=== PATIENT | female | born 1995 | race Two or more races ===

== ENCOUNTER 2020-12-20 22:33 | Inpatient (IN) | payer OTHER ==
[~2020-12-20] VITALS: Ht 162.6 cm; Wt 45.6 kg
[2020-12-20 23:33] LABS: Basophils # (auto) 0 10 ^3/uL (0-0.2); Basophils % (auto) 0.5 % (0.0-2.0); Eosinophils # (auto) 0.1 10 ^3/uL (0-0.8); Eosinophils % (auto) 0.8 % (0.0-7.0); Hematocrit 36.1 % (36.0-46.0); Hemoglobin 12.1 g/dL (12.2-16.2); Lymphocytes # (auto) 2.3 10 ^3/uL (0.4-5.4); Lymphocytes % (auto) 25.2 % (10.0-50.0); Mean Corpuscular Hemoglobin 28.7 pg (28.0-32.0); Mean Corpuscular Hgb Conc. 33.5 g/dL (32.0-36.0); Mean Corpuscular Volume 85.8 fL (80.0-100.0); Monocytes # (auto) 0.5 10 ^3/uL (0-1.3); Monocytes % (auto) 5.8 % (0.0-12.0); Neutrophils # (auto) 6.1 10 ^3/uL (1.6-8.6); Neutrophils % (auto) 67.7 % (37.0-80.0); Nucleated Red Blood Cells % 0.1 %; Platelet Count (auto) 293 10^3/uL (140-450); Red Cell Distribution Width 14.5 % (11.8-14.3); White Blood Cell 9.1 10^3/uL (4.4-10.8)
[2020-12-20 23:51] LABS: Alanine Aminotransferase 40 U/L (13-56); Albumin 4.1 g/dL (3.4-5.0); Anion Gap 9 (5-15); Aspartate Aminotransferase 15 U/L (15-37); BUN/Creatinine Ratio 22.6; Blood Urea Nitrogen 14 mg/dL (7-18); Calcium 9.3 mg/dL (8.5-10.1); Carbon Dioxide 25 mmol/L (21-32); Chloride 105 mmol/L (98-107); GFR African American 152 mL/min; GFR Non-African American 126 mL/min; Glucose 86 mg/dL (74-106); Potassium 3.3 mmol/L (3.5-5.1); Sodium 139 mmol/L (136-145)
[2020-12-20 23:54] LABS: Partial Thromboplastin Time 24.2 sec (23.0-31.2)
[2020-12-20 23:56] LABS: Alkaline Phosphatase 66 U/L (45-117); Bilirubin, Total 0.3 mg/dL (0.2-1.0)
[2020-12-21] MEDS ORDERED: LIDOCAINE 2% (LOCAL ANESTH.) PF 5ml SDV ONE (00:34)
[2020-12-21] MEDS ORDERED: KETAMINE HCL 10 ML ONE (01:27)
[2020-12-21] MEDS ORDERED: KETAMINE 50mg/ML 10ml Vial (500mg/10ml) IV ONE ×3 (01:30→03:15)
[2020-12-21] MEDS ORDERED: LORazepam 2MG/ML-1ML VIAL ONE (01:59)
[2020-12-21] MEDS ORDERED: LORazepam 2MG/ML-1ML VIAL IV ONE (03:15)
[2020-12-21] MEDS ORDERED: MORPHINE SULFATE 4 MG/ML SYR/VIAL IV ONE (04:15)
[2020-12-21] MEDS ORDERED: ONDANSETRON HCL 4 MG/2 ML VIAL IV ONE (04:15)
[2020-12-21] MEDS ORDERED: ACETAMINOPHEN 325 MG TAB PO PRN (06:45)
[2020-12-21] MEDS: FAMOTIDINE 20 MG TAB PO SCH ×2 (07:58→22:50)
[2020-12-21] MEDS: buPROPion HCL 75 MG TAB PO SCH (07:58)
[2020-12-21] MEDS: HYDROcodone-ACET 5/325MG TAB PO PRN ×4 (07:59→22:50)
[2020-12-21] MEDS: MORPHINE SULFATE 4 MG/ML SYR/VIAL IV PRN ×3 (09:11→19:45)
[2020-12-21] MEDS: ONDANSETRON HCL 4 MG/2 ML VIAL IV PRN ×3 (09:12→18:47)
[2020-12-22 01:01] VITALS: BP 118/78
[2020-12-22] MEDS: ONDANSETRON HCL 4 MG/2 ML VIAL IV PRN ×2 (01:05→05:19)
[2020-12-22] MEDS: MORPHINE SULFATE 4 MG/ML SYR/VIAL IV PRN ×4 (01:06→18:57)
[2020-12-22] MEDS: TEMAZEPAM 15 MG CAP PO PRN (01:06)
[2020-12-22] MEDS ORDERED: QUET25TA37 PO (01:42)
[2020-12-22] MEDS ORDERED: BUPR150T8 PO (01:42)
[2020-12-22] MEDS: HYDROcodone-ACET 5/325MG TAB PO PRN ×3 (04:23→15:50)
[2020-12-22 05:00] VITALS: BP 102/62
[2020-12-22 05:47] LABS: Basophils # (auto) 0 10 ^3/uL (0-0.2); Basophils % (auto) 0.6 % (0.0-2.0); Eosinophils # (auto) 0.1 10 ^3/uL (0-0.8); Eosinophils % (auto) 1.8 % (0.0-7.0); Hematocrit 31.7 % (36.0-46.0); Hemoglobin 10.8 g/dL (12.2-16.2); Lymphocytes # (auto) 2.4 10 ^3/uL (0.4-5.4); Lymphocytes % (auto) 34.1 % (10.0-50.0); Mean Corpuscular Hemoglobin 29.6 pg (28.0-32.0); Mean Corpuscular Hgb Conc. 34.2 g/dL (32.0-36.0); Mean Corpuscular Volume 86.5 fL (80.0-100.0); Monocytes # (auto) 0.8 10 ^3/uL (0-1.3); Monocytes % (auto) 11.3 % (0.0-12.0); Neutrophils # (auto) 3.7 10 ^3/uL (1.6-8.6); Neutrophils % (auto) 52.2 % (37.0-80.0); Platelet Count (auto) 217 10^3/uL (140-450); Red Blood Cells 3.67 10^6/uL (4.0-5.20); Red Cell Distribution Width 14.7 % (11.8-14.3); White Blood Cell 7.2 10^3/uL (4.4-10.8)
[2020-12-22 06:06] LABS: Calcium 8.8 mg/dL (8.5-10.1); Potassium 3.6 mmol/L (3.5-5.1)
[2020-12-22 06:09] LABS: BUN/Creatinine Ratio 12.1
[2020-12-22 08:31] VITALS: BP 106/69
[2020-12-22] MEDS: FAMOTIDINE 20 MG TAB PO SCH ×2 (09:09→21:30)
[2020-12-22] MEDS: buPROPion HCL 75 MG TAB PO SCH (09:09)
[2020-12-22 15:53] VITALS: BP 116/71
[2020-12-22] MEDS ORDERED: HYDROmorphone HCL 2 MG/ML VL IV ONE (19:45)
[2020-12-22] MEDS ORDERED: LORazepam 2MG/ML-1ML VIAL IM ONE (20:15)
[2020-12-22 21:44] VITALS: BP 120/70
[2020-12-22] MEDS ORDERED: LORazepam 2MG/ML-1ML VIAL IV ONE (21:45)
[2020-12-23] MEDS: HYDROmorphone HCL 2 MG/ML VL IV PRN ×5 (02:21→20:22)
[2020-12-23 05:22] VITALS: BP 100/64
[2020-12-23 08:00] VITALS: BP 110/65
[2020-12-23] MEDS: FAMOTIDINE 20 MG TAB PO SCH ×2 (09:47→22:00)
[2020-12-23] MEDS: buPROPion HCL 75 MG TAB PO SCH (09:47)
[2020-12-23] MEDS: HYDROcodone-ACET 5/325MG TAB PO PRN (09:48)
[2020-12-23] MEDS: ONDANSETRON HCL 4 MG/2 ML VIAL IV PRN ×2 (13:11→21:40)
[2020-12-23 16:00] VITALS: BP 118/73
[2020-12-23 22:00] VITALS: BP 117/71
[2020-12-24] MEDS: HYDROcodone-ACET 5/325MG TAB PO PRN ×4 (03:40→20:12)
[2020-12-24 05:00] VITALS: BP 111/70
[2020-12-24 08:00] VITALS: BP 102/60
[2020-12-24] MEDS: FAMOTIDINE 20 MG TAB PO SCH ×2 (10:00→21:10)
[2020-12-24] MEDS: buPROPion HCL 75 MG TAB PO SCH (10:00)
[2020-12-24 16:00] VITALS: BP 116/73
[2020-12-24] MEDS: HYDROmorphone HCL 2 MG/ML VL IV PRN (21:49)
[2020-12-24 22:00] VITALS: BP 103/67
[2020-12-25] MEDS: HYDROcodone-ACET 5/325MG TAB PO PRN ×3 (02:30→20:08)
[2020-12-25 05:00] VITALS: BP 104/63
[2020-12-25 08:00] VITALS: BP 99/72
[2020-12-25] MEDS: buPROPion HCL 75 MG TAB PO SCH (09:07)
[2020-12-25] MEDS: FAMOTIDINE 20 MG TAB PO SCH ×2 (09:07→22:50)
[2020-12-25] MEDS: HYDROmorphone HCL 2 MG/ML VL IV PRN (11:05)
[2020-12-25 15:45] VITALS: BP 104/59
[2020-12-25 22:00] VITALS: BP 122/67
[2020-12-26] MEDS: HYDROcodone-ACET 5/325MG TAB PO PRN ×3 (00:32→21:17)
[2020-12-26 05:00] VITALS: BP 110/66
[2020-12-26 07:31] VITALS: BP 105/68
[2020-12-26] MEDS: FAMOTIDINE 20 MG TAB PO SCH ×2 (09:54→21:16)
[2020-12-26] MEDS: buPROPion HCL 75 MG TAB PO SCH (09:54)
[2020-12-26] MEDS ORDERED: LORazepam 0.5 MG TAB PO PRN (10:30)
[2020-12-26 16:00] VITALS: BP 115/69
[2020-12-26 22:02] VITALS: BP 108/62
[2020-12-27 05:30] VITALS: BP 106/69
[2020-12-27] MEDS: HYDROcodone-ACET 5/325MG TAB PO PRN ×2 (07:32→22:11)
[2020-12-27 08:00] VITALS: BP 98/57
[2020-12-27] MEDS: buPROPion HCL 75 MG TAB PO SCH (09:16)
[2020-12-27] MEDS: FAMOTIDINE 20 MG TAB PO SCH ×2 (09:16→22:10)
[2020-12-27 15:39] LABS: Partial Thromboplastin Time 26.5 sec (23.0-31.2)
[2020-12-27 16:00] VITALS: BP 106/54
[2020-12-27 19:46] LABS: Alcohol, Urine < 3.0 mg/dL (0-10); Amphetamine Screen, Urine NEGATIVE (NEGATIVE); Barbiturate Scree,Urine NEGATIVE (NEGATIVE); Benzodiazephine Screen, Urine NEGATIVE (NEGATIVE); Cannabinoid Screen, Urine NEGATIVE (NEGATIVE); Cocaine Screen, Urine NEGATIVE (NEGATIVE); Opiate Scree,Urine NEGATIVE (NEGATIVE); Phencyclidine Screen, Urine NEGATIVE (NEGATIVE)
[2020-12-27 19:50] LABS: Urine Amorphous Crystal FEW /hpf (None Seen); Urine Bacteria NONE SEEN /hpf (None Seen); Urine Blood 2+ /uL (Negative); Urine Specific Gravity 1.013 (1.001-1.035); Urine WBC 3 /hpf (0 - 5)
[2020-12-27 22:00] VITALS: BP 118/69
[2020-12-28] MEDS: TEMAZEPAM 15 MG CAP PO PRN (01:59)
[2020-12-28 05:00] VITALS: BP 105/60
[2020-12-28] MEDS ORDERED: POVIDONE IODINE 10 % TOPICAL OINT 30GM TOP ONE (07:08)
[2020-12-28] MEDS ORDERED: LIDOCAINE 1% HCL (LOCAL ANESTH.) INJ 20ML MDV ONE (07:09)
[2020-12-28] MEDS ORDERED: BUPIVACAINE W/ EPINEPH 0.25% INJ 50ML MDV ONE (07:09)
[2020-12-28] MEDS ORDERED: ONDANSETRON HCL 4 MG/2 ML VIAL ONE (07:49)
[2020-12-28] MEDS ORDERED: fentaNYL CITRATE 100 MCG/2 ML VL ONE (07:49)
[2020-12-28] MEDS ORDERED: PROPOFOL 10 MG/ML 20 ML IV ONE ×2 (07:49→08:38)
[2020-12-28] MEDS ORDERED: SODIUM CHLORIDE LOCK 10 ML ONE (07:49)
[2020-12-28] MEDS ORDERED: MIDAZOLAM HCL 1MG/1ML-2 ML VIAL ONE (07:49)
[2020-12-28] MEDS ORDERED: MEPERIDINE HCL (50 MG/ML) 1 ML VIAL ONE (07:49)
[2020-12-28] MEDS ORDERED: ROCURONIUM 10MG/ML 10ML VIAL IV ONE (07:52)
[2020-12-28 08:00] VITALS: BP 105/68
[2020-12-28] MEDS ORDERED: levoFLOXacin 500MG 100 ML IV ONE (08:03)
[2020-12-28 09:43] LABS: Basophils # (auto) 0 10 ^3/uL (0-0.2); Basophils % (auto) 0.4 % (0.0-2.0); Eosinophils # (auto) 0.3 10 ^3/uL (0-0.8); Eosinophils % (auto) 3.6 % (0.0-7.0); Hematocrit 34.6 % (36.0-46.0); Hemoglobin 11.9 g/dL (12.2-16.2); Lymphocytes # (auto) 1.6 10 ^3/uL (0.4-5.4); Lymphocytes % (auto) 18.7 % (10.0-50.0); Mean Corpuscular Hemoglobin 29.5 pg (28.0-32.0); Mean Corpuscular Hgb Conc. 34.2 g/dL (32.0-36.0); Mean Corpuscular Volume 86.2 fL (80.0-100.0); Monocytes # (auto) 0.8 10 ^3/uL (0-1.3); Monocytes % (auto) 9.4 % (0.0-12.0); Neutrophils # (auto) 5.7 10 ^3/uL (1.6-8.6); Neutrophils % (auto) 67.9 % (37.0-80.0); Platelet Count (auto) 302 10^3/uL (140-450); Red Blood Cells 4.02 10^6/uL (4.0-5.20); Red Cell Distribution Width 14.6 % (11.8-14.3); White Blood Cell 8.4 10^3/uL (4.4-10.8)
[2020-12-28] MEDS ORDERED: MORPHINE SULFATE 4 MG/ML SYR/VIAL IV PRN (09:45)
[2020-12-28] MEDS ORDERED: ONDANSETRON HCL 4 MG/2 ML VIAL IV PRN (09:45)
[2020-12-28] MEDS ORDERED: HYDROmorphone HCL 2 MG/ML VL IV PRN (09:45)
[2020-12-28 10:10] LABS: Calcium 8.6 mg/dL (8.5-10.1); Potassium 3.9 mmol/L (3.5-5.1)
[2020-12-28 10:13] LABS: BUN/Creatinine Ratio 19.7
[2020-12-28] MEDS: buPROPion HCL 75 MG TAB PO SCH (11:20)
[2020-12-28] MEDS: FAMOTIDINE 20 MG TAB PO SCH ×2 (11:30→22:00)
[2020-12-28] MEDS: HYDROcodone-ACET 5/325MG TAB PO PRN ×3 (14:00→22:55)
[2020-12-28 16:24] VITALS: BP 106/68
[2020-12-28 22:00] VITALS: BP 115/73
[2020-12-29 05:00] VITALS: BP 101/60
[2020-12-29 08:00] VITALS: BP 106/63
[2020-12-29] MEDS: HYDROcodone-ACET 5/325MG TAB PO PRN ×3 (08:37→22:00)
[2020-12-29] MEDS: buPROPion HCL 75 MG TAB PO SCH (10:14)
[2020-12-29] MEDS: FAMOTIDINE 20 MG TAB PO SCH ×2 (10:14→22:00)
[2020-12-29 16:00] VITALS: BP 115/73
[2020-12-29 22:00] VITALS: BP 112/66
[2020-12-30 05:00] VITALS: BP 94/53
[2020-12-30] MEDS: HYDROcodone-ACET 5/325MG TAB PO PRN ×3 (07:45→22:00)
[2020-12-30 09:00] VITALS: BP 92/66
[2020-12-30] MEDS: buPROPion HCL 75 MG TAB PO SCH (09:30)
[2020-12-30] MEDS: FAMOTIDINE 20 MG TAB PO SCH ×2 (09:30→22:00)
[2020-12-30 13:00] VITALS: BP 109/69
[2020-12-30 17:00] VITALS: BP 118/80
[2020-12-30 22:00] VITALS: BP 112/67
[2020-12-31 05:00] VITALS: BP 98/60
[2020-12-31] MEDS: HYDROcodone-ACET 5/325MG TAB PO PRN ×2 (05:50→07:37)
[2020-12-31 08:00] VITALS: BP 102/59
[2020-12-31] MEDS: buPROPion HCL 75 MG TAB PO SCH (10:07)
[2020-12-31] MEDS: FAMOTIDINE 20 MG TAB PO SCH (10:07)
== END 2020-12-31 14:30 | disposition home or self-care (01) | DRG 201 ==
LOC: EDBD 22:33 → ER 22:35 → OVERFLOW 22:36 → CENTRAL 12-21 23:26
PROVIDERS: ADMIT Nurse Practitioner; ATTEND Internal Medicine
PROC: 0W9930Z Drainage of Right Pleural Cavity with Drainage Device, Percutaneous Approach (ICD-10-PCS; 2020-12-20)
PROC: 0W29X0Z Change Drainage Device in Right Pleural Cavity, External Approach (ICD-10-PCS; principal; 2020-12-28 08:24)
DX: J93.11 Primary spontaneous pneumothorax (principal); R06.03 Acute respiratory distress; F41.9 Anxiety disorder, unspecified; E87.6 Hypokalemia; E78.00 Pure hypercholesterolemia, unspecified; J93.82 Other air leak; F32.9 Major depressive disorder, single episode, unspecified; Z87.09 Personal history of other diseases of the respiratory system; Z20.822 Contact with and (suspected) exposure to COVID-19; Z83.3 Family history of diabetes mellitus; Z80.8 Family history of malignant neoplasm of other organs or systems; Z88.0 Allergy status to penicillin; Z88.8 Allergy status to other drugs, medicaments and biological substances; Z82.49 Family history of ischemic heart disease and other diseases of the circulatory system
CPT/HCPCS: 36415; 71045; 71046; 71250; 80048; 80053; 80307; 81001; 84484; 84702; 85025; 85610; 85730; 86850; 86900; 86901; 87426; 93005; A4565; G0378; J1956; J2001; J2250; J2405; J2704